=== PATIENT | female | born 1980 | race Caucasian/White ===

== ENCOUNTER 2020-11-15 18:08 | Emergency (ER) | payer OTHER ==
[2020-11-15] MEDS ORDERED: predniSONE 20 MG TABLET PO STA (18:39)
--- NOTE | 2020-11-15 18:42 | ED Physician Documentation ---
PD HPI SKIN - Stated complaint Stated Complaint: PAINFUL RASH - Chief complaint Chief Complaint: Wound - History obtained from History obtained from: Patient - History of Present Illness Timing - onset: How many months ago (3) Timing - duration: Months (3) Timing - details: Gradual onset Pain level max: 0 Pain level now: 0 Location: Other (B arms, and R lower leg.) Quality / character: Itchy. No: Painful Associated symptoms: No: Fever, Joint pain, Headache, Facial swelling, Dyspnea, Abd pain, N/V/D Contributing factors: No: Exposed to medication, Exposed to food, Exposed to soap / lotion, Exposed to Poison audi/oak, Insect bite /sting, Recent illness - Additional information Additional information: Patient is a 40-year-old female with an itchy rash to the bilateral upper arms. Not painful. No drainage. Nothing makes it better or worse. No fevers. No joint pain, no headache. No facial swelling or dyspnea. No throat pain. No new medications or new exposures that the patient is aware of. She states it is very itchy. No vesicles or pustules. No drainage She states that the rash does move. Review of Systems Constitutional: denies: Fever, Chills Throat: denies: Sore throat Cardiac: denies: Chest pain / pressure Respiratory: denies: Dyspnea, Cough GI: denies: Nausea, Vomiting : denies: Dysuria PD PAST MEDICAL HISTORY - Past Medical History Past Medical History: No - Past Surgical History Past Surgical History: No - Present Medications Home Medications: Ambulatory Orders Medication Instructions Recorded Confirmed Doxepin HCl [Prudoxin] 1 applic TP Q8H PRN #1 tub 11/15/20 predniSONE [Deltasone] 10 mg PO [id number] #42 tab 11/15/20 - Allergies Allergies/Adverse Reactions: Allergies Allergy/AdvReac Type Severity Reaction Status Date / Time No Known Drug Allergies Allergy Verified 11/15/20 18:24 - Living Situation Living Situation: reports: With family Living Arrangement: reports: At home - Social History Does the pt smoke?: No Does the pt drink ETOH?: No Does the pt have substance abuse?: No PD ED PE NORMAL - Vitals Vital signs reviewed: Yes - General General: Alert and oriented X 3, No acute distress, Well developed/nourished - HEENT HEENT: PERRL, Moist mucous membranes - Neck Neck: Supple, no meningeal sign - Cardiac Cardiac: RRR, Strong equal pulses - Respiratory Respiratory: No respiratory distress, Clear bilaterally - Abdomen Abdomen: Soft, Non tender, Non distended - Derm Derm: Warm and dry - Extremities Extremities: Other (Macular exanthem to the bilateral arms, scattered areas. Blanches easily. No heaped up margins. No pustules or vesicles) - Neuro Neuro: Alert and oriented X 3 - Psych Psych: Normal mood, Normal affect Results - Vitals Vitals: Vital Signs - 24 hr 11/15/20 18:24 Temperature 36.6 C Heart Rate 90 Respiratory 16 Rate Blood Pressure 128/86 H O2 Saturation 99 Oxygen O2 Source Room air PD MEDICAL DECISION MAKING - ED course Complexity details: considered differential, d/w patient ED course: 40-year-old female presents to the emergency department with a rash to the bilateral arms. She states that it does move, possible urticaria? We will place her on prednisone to see how she responds. She took pictures of the rash with her phone that she will take with her to the dermatology office. Patient counseled regarding signs and symptoms for which I believe and urgent re- evaluation would be necessary. Patient with good understanding of and agreement to plan and is comfortable going home at this time This document was made in part using voice recognition software. While efforts are made to proofread this document, sound alike and grammatical errors may occur. We will use topical doxepin for itching Departure - Departure Disposition: 01 Home, Self Care Clinical Impression: Urticaria, Dermatitis Condition: Good Instructions: ED Dermatitis Non Specific Rash, ED Urticaria Follow-Up: [facility] [Provider Group] - Within 1 week Prescriptions: predniSONE [Deltasone] 10 mg PO [id number] #42 tab Doxepin HCl [Prudoxin] 1 applic TP Q8H PRN #1 tub PRN Reason: Itching Comments: Follow-up with dermatology for further evaluation. Make sure to take the pictures with you to your appointment on your phone. Return if you worsen.
[2020-11-15 19:05] VITALS: BP 119/76
== END 2020-11-15 19:06 | disposition home or self-care (01) ==
LOC: ED 18:08
DX: L50.9 Urticaria, unspecified (principal); L30.9 Dermatitis, unspecified
CPT/HCPCS: 99282; 99284; J7512